=== PATIENT | female | born 1990 | race Hispanic/Latino ===

== ENCOUNTER 2022-12-08 15:00 | Outpatient (RCR) | payer OTHER, SELFPAY ==
--- NOTE | 2022-08-15 17:18 | PT.OIE ---
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) Postural lordosis, lumbar region (08/15/22) Separation of muscle (nontraumatic), unspecified site (08/15/22) Muscle weakness (generalized) (08/15/22) Unspecified urinary incontinence (08/15/22) Visit Care Team Role Provider Type ALBERTO Bolanos Attending Provider Non-Staff Family Provider Primary Care Provider Referring Provider Specialty: Family Practice Address: [address] [place] [address] M[facility] , [place], [place], [facility] Email: Physical Therapy Initial Evaluation PT-OP-A Visit Information Start: 08/15/22 10:33 Freq: Status: Active Protocol: Document 08/15/22 11:18 LRN (Rec: 08/15/22 12:14 LRN [id number]) Out-Patient Physical Therapy Visit Information Visit Information Visit Type Initial Evaluation Visit Start Time 11:18 Visit Stop Time 12:11 Total Visit Minutes 53 Visit Number 04/24 Evaluation Information Evaluation Date 08/15/22 Precautions Precautions None PT-OP-B Current Condition Start: 08/15/22 10:33 Freq: Status: Active Protocol: Document 08/15/22 11:18 LRN (Rec: 08/15/22 12:14 LRN [id number]) Current Condition History of Current Condition Onset Date 10/22/21 Current Complaints Urinary leakage with cough, sneeze, squat, not exercising History of Current Condition Pt reports since the of her son while in standing if she coughs, sneezes, or squats , she has urinary leakage and can feel her pelvic floor drop . She reports a separation of abdominal muscles. One primarily complaint is that she hasn't done a work out/ exercise since the of her son. Her hips have hurt since sometimes with prolonged positioning. Prior to childbirth she states she exercised throughout and 2 days before did: wgt training 3-4x/week with weights and cardio (jumping jacks, 1x/week running, and stationary bike). She reports having a vaginal with tearing (2nd or 3rd degree). She states still is still . Prior Treatments and Tests None Future Testing and Treatments Planned None Developmental History Developmental History of son 10/22/2021. Treatment Goals Patient/Caregiver Goals Pt goals: Not leak with cough , sneeze, squat/stress. Strengthen pelvic floor. HEP, Education proper body mechanics/breathing. Personal Factors Other Personal Factors That May Effect Spouse is in , no Therapy/Recovery family in area. PT-OP-C Subjective Start: 08/15/22 10:33 Freq: Status: Active Protocol: Document 08/15/22 11:18 LRN (Rec: 08/15/22 12:14 LRN [id number]) Patient Questionnaires Pelvic Pain and Urgency/Frequency Patient Symptom Scale Pelvic Pain Score 3 PT-OP-I Pelvic Floor Start: 08/15/22 10:33 Freq: Status: Active Protocol: Document 08/15/22 11:18 LRN (Rec: 08/15/22 12:14 LRN [id number]) Pelvic Floor Assessment Urine Pelvic Floor Surgery No Leakage Size Small Leakage Cause Cough,Exercise,Sneeze Other Leakage Causes Squat holding son. Leaks Per Day 0-1 Nocturia 0 Bowel Bowel Surgery No Bowel Movement Frequency Daily [place] Stool Chart Comments BM type 3, 4. Uses squatty potty Pelvic Clock Pelvic Clock 3-6 Tenderness Pelvic Clock 6-9 Tenderness Prolapse Cystocele Grade 2 Perineal Descent Resting Absent Bearing Present Contraction Ability Manual Muscle Testing Left 2 Manual Muscle Testing Right 2 Manual Muscle Testing Anterior 1 Manual Muscle Testing Posterior 3 Muscle Endurance (Seconds) 5 Number of Quick Contractions In 10 4 Seconds Comments Pelvic Floor Comments Externally: PF tissues dry. Internally: At vaginal entry tissue appear angry red. Gapping at small vaginal opening. Bulge felt at 5-7 of PF clock; therefore possible grade 1 rectocle. Pt uses substitute ms to perform a PF contraction. Muscle endurance: Held 10 secs, but required retightening after 5 secs. PT-OP-J Posture/Palpation/Skin Start: 08/15/22 10:33 Freq: Status: Active Protocol: Document 08/15/22 11:18 LRN (Rec: 08/15/22 12:14 LRN [id number]) Posture Evaluation Position Standing Head/C-Spine Posture Neutral Position T-Spine Posture Flattened L-Spine Posture Increased Lordosis Shoulder Posture (R) Elevated Pelvis Posture (R) Iliac Crest Superior,(R) PSIS Posterior Weight Distribution Balanced Hip Posture (L) Externally Rotated,(R) Externally Rotated Knee Posture (L) Genu Varus,(R) Genu Varus Comments Posture Comments R scapula is upwardly rotated. Palpation Assessment Location Abdomen Palpation Location Diastasis Rectus Palpation Details Umbilicus 4 above: 2 finger width (~2.5 cm) Umbilicus 3 above: 2 finger widths Umbilicus 2 above: 2.5 finger widths Umbilicus 1 above: 2.5 finger widths Umbilicus Umbilicus: 1 below: 3 finger widths Umbilicus: 2 below: 2.5 finger widths Umbilicus: 3 below: finger widths Umbilicus: 4 below: 0 finger widths PT-OP-K Range of Motion Start: 08/15/22 10:33 Freq: Status: Active Protocol: Document 08/15/22 11:18 LRN (Rec: 08/15/22 12:14 LRN [id number]) Lumbar Spine Range of Motion Lumbar Spine Active Degrees Testing Position Standing Flexion 90 Extension 12 Rotation Left 35 Rotation Right 40 Lateral Flexion Left 15 Lateral Flexion Right 15 Hip Goniometric Range of Motion Hip Right Passive Testing Position Supine Left Passive Testing Position Supine PT-OP-M Strength Start: 08/15/22 10:33 Freq: Status: Active Protocol: Document 08/15/22 11:18 LRN (Rec: 08/15/22 12:14 LRN [id number]) Trunk Strength Trunk Manual Muscle Testing Core Stabilization Poor Core stabilization with movement and resistance given to LE's. Hip Strength Hip Manual Muscle Testing Right Flexion (L2) 4+ Good+ Extension (S1) 5 Normal Abduction 5 Normal Adduction 4 Good External Rotation 5 Normal Internal Rotation 4+ Good+ Left Flexion (L2) 4+ Good+ Extension (S1) 4+ Good+ Abduction 5 Normal Adduction 4 Good External Rotation 3+ Fair+ Internal Rotation 4+ Good+ PT-OP-Q Treatments Start: 08/15/22 10:33 Freq: Status: Active Protocol: Document 08/15/22 11:18 LRN (Rec: 08/15/22 12:14 LRN [id number]) Self-Care/Home Management Treatment Education Other Education Discussed results of evaluation, goals, and plan of care (POC). Pt agreeable to goals and POC. Activities Self-Care/Home Management Activities Pt educated in self care technique for DR protection with transfers using sheet, and use of breathwork for TA tightening. PT-OP-T Assessment and Plan Start: 08/15/22 10:33 Freq: Status: Active Protocol: Document 08/15/22 11:18 LRN (Rec: 08/15/22 12:14 LRN [id number]) Physical Therapy Assessment Rehab Potential Rehabilitation Potential Good Evaluation Complexity Number of Personal Factors/Comorbidities 1-2 Number of Body Systems Impaired 4 or More Clinical Presentation at Evaluation Evolving Impairments Impairments Activity Tolerance,Posture,ROM ,Soft Tissue Mobility,Strength ,Transfers Other Impairments Urinary leakage with stress. Not able to return to prior exercise activities. Goals Three Impairment Diastasis Rectus (DR) causing core instability. Impairment Umbilicus 4 above: 2 finger width (~2.5 cm) Umbilicus 3 above: 2 finger widths Umbilicus 2 above: 2.5 finger widths Umbilicus 1 above: 2.5 finger widths Umbilicus Umbilicus: 1 below: 3 finger widths Umbilicus: 2 below: 2.5 finger widths Umbilicus: 3 below: finger widths Umbilicus: 4 below: 0 finger widths Short Term Goal (STG) Pt education in DR protection using towel for support to DR with transfers and Pt will be educated in proper sitting/ standing posture and educated in proper body mechanics for ADLs and exercise. . STG Duration 09/05/22 Bus Analyst Goal (LTG) Decrease DR, greater expected decrease to occur in > 6 months due to post hormonal changes. LTG Duration 11/14/22 Two Impairment Stress incontinence Impairment PF weakness with presence of substitute ms. PF weakness with urinary leakage on stress to PF (cough , sneeze, lifting son). Short Term Goal (STG) Education in proper methods for transfer with coordination of breathing with functional activities. STG Duration 08/29/22 Bus Analyst Goal (LTG) Strengthen the PF with pt able to cough, sneeze, lift son without urinary leakage. LTG Duration 11/14/22 One Impairment Pt lacks self care HEP. Short Term Goal (STG) Pt will be independent in appropriate self care & hip stretches. STG Duration 10/06/22 Group Home Goal (LTG) Pt will be independent in appropriate PF (to decrease urinary leakage) & core strengthening ex's to improve posture. LTG Duration 11/14/22 Assessment Summary Assessment Pt is a 32 year old female who will be one year post on 10/22/21. She presents with stress urinary incontinence and notable diastasis rectus that limits her core and pelvic stability. She has a possible leg length descrepancy, mentioned towards the end of the evaluation that will be assessed at her next visit. She appears to have a posterior positioned R innominate and possible R sacral rotation, with decreased hip strength, L>R. The pt has dryness of her external PF tissues and visible gapping at her vaginal entry, as well as tenderness/ redness internally at the entry; therefore further medical assessment may be needed by referring physician for possible estrogen therapy when appropriate. She notes no tenderness of the Pelvic Floor (PF) muscles per internal assessment. She has weakness of her PF at 1-2, 4-5 , 7-8, and 10-11 of her PF clock. She is able to perform 4 quick contraction in 10 secs and can hold the PF contraction 5 secs before feeling the muscles re- contract. The pt will benefit from skilled physical therapy to eliminate urinary leakage and be educated in ex's to improve her core stability and help with reduction of her diastasis rectus over time and once she has stopped , manual therapy for postural dysfunctions, pt education in proper core pressure management and home ex program. Physical Therapy Plan Frequency and Duration Frequency of Treatment 1x/Week Plan of Care Start Date 08/15/22 Plan of Care End Date 11/14/22 Therapeutic Interventions Therapeutic Interventions Home Exercise Program,Joint Mobilizations,Manual Therapy, Neuromuscular Re-education, Patient/Caregiver Education, Self-Care/Home Management,Soft Tissue Mobilization,Taping, Therapeutic Activities, Therapeutic Exercises Modalities Biofeedback,Hot Packs Next Visit Focus/Plan Next Note Type Treatment Note Next Visit Plan Assess hip mobility and sacral positioning. Issue and educate in filling out bladder diary, and review bladder diary when returned, Pt education in proper Kegel without use of substitute muscles, pt education in vulvar/genital care, proper breathing with transfer, and body mechanics, and proper deep breathing. Biofeedback with vaginal/ rectal/surface sensor(s). PF/core/hip strengthening, improve hip mobility, improve abdominal soft tissue (bladder ) mobility, discuss foods, and water intake. TA strengthening, K-taping for DR, discuss & educate pt in proper squatting and lifting, sit to stand, and moving in bed using breathwork and core/ PF stabilization for proper abdominal core pressures, teach proper isolated Kegels for pelvic stabilization, STM of abdomen (and urachus), bladder.
--- NOTE | 2022-08-21 18:01 | PT.OTN ---
Current Diagnoses Flatback syndrome, site unspecified (08/21/22) Postural lordosis, lumbar region (08/21/22) Separation of muscle (nontraumatic), unspecified site (08/21/22) Muscle weakness (generalized) (08/21/22) Unspecified urinary incontinence (08/21/22) Physical Therapy Treatment Note PT-OP-A Visit Information Start: 08/15/22 10:33 Freq: Status: Active Protocol: Document 08/21/22 08:53 LRN (Rec: 08/21/22 09:34 LRN [id number]) Out-Patient Physical Therapy Visit Information Visit Information Visit Type Treatment Note Visit Start Time 08:53 Visit Stop Time 09:31 Total Visit Minutes 38 Visit Number 05/25 Evaluation Information Evaluation Date 08/15/22 Precautions Precautions None PT-OP-B Current Condition Start: 08/15/22 10:33 Freq: Status: Active Protocol: Document 08/15/22 11:18 LRN (Rec: 08/15/22 12:14 LRN [id number]) Current Condition History of Current Condition Onset Date 10/22/21 Current Complaints Urinary leakage with cough, sneeze, squat, not exercising History of Current Condition Pt reports since the of her son while in standing if she coughs, sneezes, or squats , she has urinary leakage and can feel her pelvic floor drop . She reports a separation of abdominal muscles. One primarily complaint is that she hasn't done a work out/ exercise since the of her son. Her hips have hurt since sometimes with prolonged positioning. Prior to childbirth she states she exercised throughout and 2 days before did: wgt training 3-4x/week with weights and cardio (jumping jacks, 1x/week running, and stationary bike). She reports having a vaginal with tearing (2nd or 3rd degree). She states still is still . Prior Treatments and Tests None Future Testing and Treatments Planned None Developmental History Developmental History of son 10/22/2021. Treatment Goals Patient/Caregiver Goals Pt goals: Not leak with cough , sneeze, squat/stress. Strengthen pelvic floor. HEP, Education proper body mechanics/breathing. Personal Factors Other Personal Factors That May Effect Spouse is in , no Therapy/Recovery family in area. PT-OP-C Subjective Start: 08/15/22 10:33 Freq: Status: Active Protocol: Document 08/21/22 08:53 LRN (Rec: 08/21/22 09:34 LRN [id number]) OP-PT Subjective Patient Comments Patient Comments C/O R hip hurting at nighttime . States she has a family history of needing to shorten her R pant legs for wearing (L side fits properly). PT-OP-I Pelvic Floor Start: 08/15/22 10:33 Freq: Status: Active Protocol: Document 08/15/22 11:18 LRN (Rec: 08/15/22 12:14 LRN [id number]) Pelvic Floor Assessment Urine Pelvic Floor Surgery No Leakage Size Small Leakage Cause Cough,Exercise,Sneeze Other Leakage Causes Squat holding son. Leaks Per Day 0-1 Nocturia 0 Bowel Bowel Surgery No Bowel Movement Frequency Daily [place] Stool Chart Comments BM type 3, 4. Uses squatty potty Pelvic Clock Pelvic Clock 3-6 Tenderness Pelvic Clock 6-9 Tenderness Prolapse Cystocele Grade 2 Perineal Descent Resting Absent Bearing Present Contraction Ability Manual Muscle Testing Left 2 Manual Muscle Testing Right 2 Manual Muscle Testing Anterior 1 Manual Muscle Testing Posterior 3 Muscle Endurance (Seconds) 5 Number of Quick Contractions In 10 4 Seconds Comments Pelvic Floor Comments Externally: PF tissues dry. Internally: At vaginal entry tissue appear angry red. Gapping at small vaginal opening. Bulge felt at 5-7 of PF clock; therefore possible grade 1 rectocle. Pt uses substitute ms to perform a PF contraction. Muscle endurance: Held 10 secs, but required retightening after 5 secs. PT-OP-J Posture/Palpation/Skin Start: 08/15/22 10:33 Freq: Status: Active Protocol: Document 08/15/22 11:18 LRN (Rec: 08/15/22 12:14 LRN [id number]) Posture Evaluation Position Standing Head/C-Spine Posture Neutral Position T-Spine Posture Flattened L-Spine Posture Increased Lordosis Shoulder Posture (R) Elevated Pelvis Posture (R) Iliac Crest Superior,(R) PSIS Posterior Weight Distribution Balanced Hip Posture (L) Externally Rotated,(R) Externally Rotated Knee Posture (L) Genu Varus,(R) Genu Varus Comments Posture Comments R scapula is upwardly rotated. Palpation Assessment Location Abdomen Palpation Location Diastasis Rectus Palpation Details Umbilicus 4 above: 2 finger width (~2.5 cm) Umbilicus 3 above: 2 finger widths Umbilicus 2 above: 2.5 finger widths Umbilicus 1 above: 2.5 finger widths Umbilicus Umbilicus: 1 below: 3 finger widths Umbilicus: 2 below: 2.5 finger widths Umbilicus: 3 below: finger widths Umbilicus: 4 below: 0 finger widths PT-OP-K Range of Motion Start: 08/15/22 10:33 Freq: Status: Active Protocol: Document 08/21/22 08:53 LRN (Rec: 08/21/22 09:34 LRN [id number]) Hip Goniometric Range of Motion Hip Right Passive Testing Position Supine Internal Rotation 35 External Rotation 45 Left Passive Testing Position Supine Internal Rotation 30 External Rotation 50 PT-OP-M Strength Start: 08/15/22 10:33 Freq: Status: Active Protocol: Document 08/15/22 11:18 LRN (Rec: 08/15/22 12:14 LRN [id number]) Trunk Strength Trunk Manual Muscle Testing Core Stabilization Poor Core stabilization with movement and resistance given to LE's. Hip Strength Hip Manual Muscle Testing Right Flexion (L2) 4+ Good+ Extension (S1) 5 Normal Abduction 5 Normal Adduction 4 Good External Rotation 5 Normal Internal Rotation 4+ Good+ Left Flexion (L2) 4+ Good+ Extension (S1) 4+ Good+ Abduction 5 Normal Adduction 4 Good External Rotation 3+ Fair+ Internal Rotation 4+ Good+ PT-OP-Q Treatments Start: 08/15/22 10:33 Freq: Status: Active Protocol: Document 08/21/22 08:53 LRN (Rec: 08/21/22 09:34 LRN [id number]) Therapeutic Exercises Supine Exercises Hip IR stretch Supine Exercise Name Piriformis stretch (ankle over knee w/opp LE KTC) Side bilateral Reps/Minutes 10SH x 6 each Comments Extra time needed for positional training and max bella stretch Lateral Hip stretch Supine Exercise Name Lateral Hip stretch Side bilateral Reps/Minutes 10SH x 10 each Comments Extra time needed for positional training and max bella stretch TA tightening Supine Exercise Name TA tightening w/awareness of proper contraction w/o trunk extensors Reps/Minutes 10' Comments Much cuing required for keeping chest still Deep Breathing Supine Exercise Name Deep Breathing Training and awareness training Reps/Minutes 5' Sitting Exercises Hip ER stretch Sitting Exercise Name R Hip ER stretch Side right Reps/Minutes 60SH x 2 Comments Extra time needed for positional training and max bella stretch Self-Care/Home Management Treatment Education Patient Education Home Exercise Program Activities Self-Care/Home Management Activities Issued & reviewed HEP: Hip stretch IR/ER in supine and ER in sitting. Added TA tightening w/o chest movement and Deep breathing/breathing w /min chest rise PT-OP-T Assessment and Plan Start: 08/15/22 10:33 Freq: Status: Active Protocol: Document 08/21/22 08:53 LRN (Rec: 08/21/22 09:34 LRN [id number]) Physical Therapy Assessment Goals Three Impairment Diastasis Rectus (DR) causing core instability. Impairment Umbilicus 4 above: 2 finger width (~2.5 cm) Umbilicus 3 above: 2 finger widths Umbilicus 2 above: 2.5 finger widths Umbilicus 1 above: 2.5 finger widths Umbilicus Umbilicus: 1 below: 3 finger widths Umbilicus: 2 below: 2.5 finger widths Umbilicus: 3 below: finger widths Umbilicus: 4 below: 0 finger widths Short Term Goal (STG) Pt education in DR protection using towel for support to DR with transfers and Pt will be educated in proper sitting/ standing posture and educated in proper body mechanics for ADLs and exercise. . STG Duration 09/05/22 Usp Goal (LTG) Decrease DR, greater expected decrease to occur in > 6 months due to post hormonal changes. LTG Duration 11/14/22 Two Impairment Stress incontinence Impairment PF weakness with presence of substitute ms. PF weakness with urinary leakage on stress to PF (cough , sneeze, lifting son). Short Term Goal (STG) Education in proper methods for transfer with coordination of breathing with functional activities. STG Duration 08/29/22 Usp Goal (LTG) Strengthen the PF with pt able to cough, sneeze, lift son without urinary leakage. LTG Duration 11/14/22 One Impairment Pt lacks self care HEP. Short Term Goal (STG) Pt will be independent in appropriate self care & hip stretches. STG Duration 10/06/22 (08/21/22: MET GOAL) Decorating Supervisor Goal (LTG) Pt will be independent in appropriate PF (to decrease urinary leakage) & core strengthening ex's to improve posture. LTG Duration 11/14/22 Progress Towards Goals Progress Comments Progressed HEP. Assessment Summary Assessment R leg length is normal in supine and slightly long in longsit; therefore further assessment is needed, probably sacral balancing is needed. Pt is not able to maintain core stability during hip stretches, but is now more aware and may be able to isolate her hips to stretch. Improved deep breathing ability. Pt is not able to tighten TA without using her trunk extensors. Physical Therapy Plan Frequency and Duration Frequency of Treatment 1x/Week Plan of Care Start Date 08/15/22 Plan of Care End Date 11/14/22 Next Visit Focus/Plan Next Note Type Treatment Note Next Visit Plan Recheck for pt ablility to perform TA w/o trunk extensors . Assess sacral positioning for balancing. Issue and educate in filling out bladder diary, and review bladder diary when returned. Pt education in proper Kegel without use of substitute muscles, pt education in vulvar/genital care, proper breathing with transfer, and body mechanics PF/core/hip strengthening, improve hip mobility, improve abdominal soft tissue (bladder ) mobility, discuss foods, and water intake. TA strengthening, K-taping for DR, discuss & educate pt in proper squatting and lifting, sit to stand, and moving in bed using breathwork and core/ PF stabilization for proper abdominal core pressures, teach proper isolated Kegels for pelvic stabilization, STM of abdomen (and urachus), bladder.
--- NOTE | 2022-09-23 16:27 | PT.OTN ---
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, lumbar region (09/23/22) Separation of muscle (nontraumatic), unspecified site (09/23/22) Muscle weakness (generalized) (09/23/22) Unspecified urinary incontinence (09/23/22) Physical Therapy Treatment Note PT-OP-A Visit Information Start: 08/15/22 10:33 Freq: Status: Active Protocol: Document 09/23/22 15:05 LRN (Rec: 09/23/22 16:26 LRN [id number]) Out-Patient Physical Therapy Visit Information Visit Information Visit Type Treatment Note Visit Start Time 15:06 Visit Stop Time 15:46 Total Visit Minutes 40 Visit Number 06/22 PT-OP-B Current Condition Start: 08/15/22 10:33 Freq: Status: Active Protocol: Document 08/15/22 11:18 LRN (Rec: 08/15/22 12:14 LRN [id number]) Current Condition History of Current Condition Onset Date 10/22/21 Current Complaints Urinary leakage with cough, sneeze, squat, not exercising History of Current Condition Pt reports since the of her son while in standing if she coughs, sneezes, or squats , she has urinary leakage and can feel her pelvic floor drop . She reports a separation of abdominal muscles. One primarily complaint is that she hasn't done a work out/ exercise since the of her son. Her hips have hurt since sometimes with prolonged positioning. Prior to childbirth she states she exercised throughout and 2 days before did: wgt training 3-4x/week with weights and cardio (jumping jacks, 1x/week running, and stationary bike). She reports having a vaginal with tearing (2nd or 3rd degree). She states still is still . Prior Treatments and Tests None Future Testing and Treatments Planned None Developmental History Developmental History of son 10/22/2021. Treatment Goals Patient/Caregiver Goals Pt goals: Not leak with cough , sneeze, squat/stress. Strengthen pelvic floor. HEP, Education proper body mechanics/breathing. Personal Factors Other Personal Factors That May Effect Spouse is in , no Therapy/Recovery family in area. PT-OP-C Subjective Start: 08/15/22 10:33 Freq: Status: Active Protocol: Document 09/23/22 15:05 LRN (Rec: 09/23/22 16:26 LRN [id number]) OP-PT Subjective Patient Comments Patient Comments States she knows she doesn't drink enough fluids but doesn' t have time when taking care of 11 month old son. PT-OP-I Pelvic Floor Start: 08/15/22 10:33 Freq: Status: Active Protocol: Document 08/15/22 11:18 LRN (Rec: 08/15/22 12:14 LRN [id number]) Pelvic Floor Assessment Urine Pelvic Floor Surgery No Leakage Size Small Leakage Cause Cough,Exercise,Sneeze Other Leakage Causes Squat holding son. Leaks Per Day 0-1 Nocturia 0 Bowel Bowel Surgery No Bowel Movement Frequency Daily [place] Stool Chart Comments BM type 3, 4. Uses squatty potty Pelvic Clock Pelvic Clock 3-6 Tenderness Pelvic Clock 6-9 Tenderness Prolapse Cystocele Grade 2 Perineal Descent Resting Absent Bearing Present Contraction Ability Manual Muscle Testing Left 2 Manual Muscle Testing Right 2 Manual Muscle Testing Anterior 1 Manual Muscle Testing Posterior 3 Muscle Endurance (Seconds) 5 Number of Quick Contractions In 10 4 Seconds Comments Pelvic Floor Comments Externally: PF tissues dry. Internally: At vaginal entry tissue appear angry red. Gapping at small vaginal opening. Bulge felt at 5-7 of PF clock; therefore possible grade 1 rectocle. Pt uses substitute ms to perform a PF contraction. Muscle endurance: Held 10 secs, but required retightening after 5 secs. PT-OP-J Posture/Palpation/Skin Start: 08/15/22 10:33 Freq: Status: Active Protocol: Document 08/15/22 11:18 LRN (Rec: 08/15/22 12:14 LRN [id number]) Posture Evaluation Position Standing Head/C-Spine Posture Neutral Position T-Spine Posture Flattened L-Spine Posture Increased Lordosis Shoulder Posture (R) Elevated Pelvis Posture (R) Iliac Crest Superior,(R) PSIS Posterior Weight Distribution Balanced Hip Posture (L) Externally Rotated,(R) Externally Rotated Knee Posture (L) Genu Varus,(R) Genu Varus Comments Posture Comments R scapula is upwardly rotated. Palpation Assessment Location Abdomen Palpation Location Diastasis Rectus Palpation Details Umbilicus 4 above: 2 finger width (~2.5 cm) Umbilicus 3 above: 2 finger widths Umbilicus 2 above: 2.5 finger widths Umbilicus 1 above: 2.5 finger widths Umbilicus Umbilicus: 1 below: 3 finger widths Umbilicus: 2 below: 2.5 finger widths Umbilicus: 3 below: finger widths Umbilicus: 4 below: 0 finger widths PT-OP-K Range of Motion Start: 08/15/22 10:33 Freq: Status: Active Protocol: Document 08/21/22 08:53 LRN (Rec: 08/21/22 09:34 LRN [id number]) Hip Goniometric Range of Motion Hip Right Passive Testing Position Supine Internal Rotation 35 External Rotation 45 Left Passive Testing Position Supine Internal Rotation 30 External Rotation 50 PT-OP-M Strength Start: 08/15/22 10:33 Freq: Status: Active Protocol: Document 08/15/22 11:18 LRN (Rec: 08/15/22 12:14 LRN [id number]) Trunk Strength Trunk Manual Muscle Testing Core Stabilization Poor Core stabilization with movement and resistance given to LE's. Hip Strength Hip Manual Muscle Testing Right Flexion (L2) 4+ Good+ Extension (S1) 5 Normal Abduction 5 Normal Adduction 4 Good External Rotation 5 Normal Internal Rotation 4+ Good+ Left Flexion (L2) 4+ Good+ Extension (S1) 4+ Good+ Abduction 5 Normal Adduction 4 Good External Rotation 3+ Fair+ Internal Rotation 4+ Good+ PT-OP-Q Treatments Start: 08/15/22 10:33 Freq: Status: Active Protocol: Document 09/23/22 15:05 LRN (Rec: 09/23/22 16:26 LRN [id number]) Therapeutic Exercises Supine Exercises Hip IR stretch Supine Exercise Name Piriformis stretch (ankle over knee w/opp LE KTC) Side bilateral Reps/Minutes 60 SH x 1 Lateral Hip stretch Supine Exercise Name Lateral Hip stretch Side bilateral Reps/Minutes 10SH x 10 each Comments Extra time needed for positional training and max bella stretch TA tightening Supine Exercise Name TA tightening w/awareness of proper contraction w/o trunk extensors Reps/Minutes 3' Comments Noted TA tight at ASIS Deep Breathing Supine Exercise Name Deep Breathing Training and awareness training Reps/Minutes 5' Comments Pt able to breath through 5 secs. Sitting Exercises Hip ER stretch Sitting Exercise Name R Hip ER stretch (sitting and side sit) Side right Reps/Minutes 60SH x 1 each Other Exercises 4 pt TA tightening Other Exercise Name 4 pt TA tightening Reps/Minutes 4 breath hold x 10 Comments Cuing and training to keep neutral spine. Self-Care/Home Management Treatment Education Patient Education Home Exercise Program Other Education Reviewed Bladder Diary with recommendations and discussion of hydration levels, and times between voids. Discussed possible outcomes of lack of hydration ( constipation, possible UTI). Activities Self-Care/Home Management Activities Issued & reviewed self care: DR care of towel use for approximation of TA and for log roll transfer to protect DR. Issued & reviewed HEP: 4 pt TA tightening. PT-OP-T Assessment and Plan Start: 08/15/22 10:33 Freq: Status: Active Protocol: Document 09/23/22 15:05 LRN (Rec: 09/23/22 16:26 LRN [id number]) Physical Therapy Assessment Goals Three Impairment Diastasis Rectus (DR) causing core instability. Impairment Umbilicus 4 above: 2 finger width (~2.5 cm) Umbilicus 3 above: 2 finger widths Umbilicus 2 above: 2.5 finger widths Umbilicus 1 above: 2.5 finger widths Umbilicus Umbilicus: 1 below: 3 finger widths Umbilicus: 2 below: 2.5 finger widths Umbilicus: 3 below: finger widths Umbilicus: 4 below: 0 finger widths Short Term Goal (STG) Pt education in DR protection using towel for support to DR with transfers and Pt will be educated in proper sitting/ standing posture and educated in proper body mechanics for ADLs and exercise. 09/23/22: Educated pt in DR protection using towel for support with transfers. STG Duration 09/05/22 progressed 09/23/22 DR education Senior Living Goal (LTG) Decrease DR, greater expected decrease to occur in > 6 months due to post hormonal changes. LTG Duration 11/14/22 Two Impairment Stress incontinence Impairment PF weakness with presence of substitute ms. PF weakness with urinary leakage on stress to PF (cough , sneeze, lifting son). Short Term Goal (STG) Education in proper methods for transfer with coordination of breathing with functional activities. 09/23/22: Educated in proper methods for transfer. STG Duration 08/29/22 progressed 09/23/22 Lou[employer] Mortiser Operator Goal (LTG) Strengthen the PF with pt able to cough, sneeze, lift son without urinary leakage. LTG Duration 11/14/22 One Impairment Pt lacks self care HEP. Short Term Goal (STG) Pt will be independent in appropriate self care & hip stretches. 09/23/22: Pt shows good knowledge of hip IR/ER stretches. STG Duration 10/06/22 (08/21/22: MET GOAL) Senior Living Goal (LTG) Pt will be independent in appropriate PF (to decrease urinary leakage) & core strengthening ex's to improve posture. LTG Duration 11/14/22 Assessment Summary Assessment Per bladder diary review, pt is not drinking enough fluids and has too much time between voids. Improved ability to deep breath and she demonstrates good TA contraction through 5 sec breaths. Physical Therapy Plan Frequency and Duration Frequency of Treatment 1x/Week Plan of Care Start Date 08/15/22 Plan of Care End Date 11/14/22 Next Visit Focus/Plan Next Note Type Treatment Note Next Visit Plan Next: educate in proper sitting/standing posture, breathwork with proper body mechanics for ADLs and exercise (proper squatting and lifting, sit to stand, and moving in bed), and core/PF stabilization for proper abdominal core pressures. Assess sacral positioning for balancing. Pt education in proper Kegel without use of substitute muscles, pt education in vulvar/genital care, PF/core/hip strengthening, improve hip mobility, improve abdominal soft tissue (bladder ) mobility. Progress TA strengthening, ? K-taping for DR, discuss/ teach proper isolated Kegels for pelvic stabilization, STM of abdomen (and urachus), bladder.
--- NOTE | 2022-10-16 16:12 | PT.OTN ---
Current Diagnoses Flatback syndrome, site unspecified (10/16/22) Postural lordosis, lumbar region (10/16/22) Separation of muscle (nontraumatic), unspecified site (10/16/22) Muscle weakness (generalized) (10/16/22) Unspecified urinary incontinence (10/16/22) Physical Therapy Treatment Note PT-OP-A Visit Information Start: 08/15/22 10:33 Freq: Status: Active Protocol: Document 10/16/22 15:01 LRN (Rec: 10/16/22 16:08 LRN [id number]) Out-Patient Physical Therapy Visit Information Visit Information Visit Type Treatment Note Visit Start Time 15:01 Visit Stop Time 15:44 Total Visit Minutes 43 Visit Number 07/23 Evaluation Information Evaluation Date 08/15/22 Precautions Precautions None PT-OP-B Current Condition Start: 08/15/22 10:33 Freq: Status: Active Protocol: Document 08/15/22 11:18 LRN (Rec: 08/15/22 12:14 LRN [id number]) Current Condition History of Current Condition Onset Date 10/22/21 Current Complaints Urinary leakage with cough, sneeze, squat, not exercising History of Current Condition Pt reports since the of her son while in standing if she coughs, sneezes, or squats , she has urinary leakage and can feel her pelvic floor drop . She reports a separation of abdominal muscles. One primarily complaint is that she hasn't done a work out/ exercise since the of her son. Her hips have hurt since sometimes with prolonged positioning. Prior to childbirth she states she exercised throughout and 2 days before did: wgt training 3-4x/week with weights and cardio (jumping jacks, 1x/week running, and stationary bike). She reports having a vaginal with tearing (2nd or 3rd degree). She states still is still . Prior Treatments and Tests None Future Testing and Treatments Planned None Developmental History Developmental History of son 10/22/2021. Treatment Goals Patient/Caregiver Goals Pt goals: Not leak with cough , sneeze, squat/stress. Strengthen pelvic floor. HEP, Education proper body mechanics/breathing. Personal Factors Other Personal Factors That May Effect Spouse is in , no Therapy/Recovery family in area. PT-OP-C Subjective Start: 08/15/22 10:33 Freq: Status: Active Protocol: Document 09/23/22 15:05 LRN (Rec: 09/23/22 16:26 LRN [id number]) OP-PT Subjective Patient Comments Patient Comments States she knows she doesn't drink enough fluids but doesn' t have time when taking care of 11 month old son. PT-OP-I Pelvic Floor Start: 08/15/22 10:33 Freq: Status: Active Protocol: Document 10/16/22 15:01 LRN (Rec: 10/16/22 16:08 LRN [id number]) Pelvic Floor Assessment SEMG (uV) Baseline 4.0 Quick Contraction 12 10 Second Contraction 11.0 Recruitment Pattern Good Relaxation Fair Holding Fair Stability of Hold Poor/Slow SEMG Stability of Rest Fair Comments Pelvic Floor Comments Quick Flicks (10 reps noted above): No isolation of PF from abdominals. Long Holds (10 reps noted above): Pt tried to isolate PF from abdominals. PT-OP-J Posture/Palpation/Skin Start: 08/15/22 10:33 Freq: Status: Active Protocol: Document 08/15/22 11:18 LRN (Rec: 08/15/22 12:14 LRN [id number]) Posture Evaluation Position Standing Head/C-Spine Posture Neutral Position T-Spine Posture Flattened L-Spine Posture Increased Lordosis Shoulder Posture (R) Elevated Pelvis Posture (R) Iliac Crest Superior,(R) PSIS Posterior Weight Distribution Balanced Hip Posture (L) Externally Rotated,(R) Externally Rotated Knee Posture (L) Genu Varus,(R) Genu Varus Comments Posture Comments R scapula is upwardly rotated. Palpation Assessment Location Abdomen Palpation Location Diastasis Rectus Palpation Details Umbilicus 4 above: 2 finger width (~2.5 cm) Umbilicus 3 above: 2 finger widths Umbilicus 2 above: 2.5 finger widths Umbilicus 1 above: 2.5 finger widths Umbilicus Umbilicus: 1 below: 3 finger widths Umbilicus: 2 below: 2.5 finger widths Umbilicus: 3 below: finger widths Umbilicus: 4 below: 0 finger widths PT-OP-K Range of Motion Start: 08/15/22 10:33 Freq: Status: Active Protocol: Document 08/21/22 08:53 LRN (Rec: 08/21/22 09:34 LRN [id number]) Hip Goniometric Range of Motion Hip Right Passive Testing Position Supine Internal Rotation 35 External Rotation 45 Left Passive Testing Position Supine Internal Rotation 30 External Rotation 50 PT-OP-M Strength Start: 08/15/22 10:33 Freq: Status: Active Protocol: Document 08/15/22 11:18 LRN (Rec: 08/15/22 12:14 [facility] [id number]) Trunk Strength Trunk Manual Muscle Testing Core Stabilization Poor Core stabilization with movement and resistance given to LE's. Hip Strength Hip Manual Muscle Testing Right Flexion (L2) 4+ Good+ Extension (S1) 5 Normal Abduction 5 Normal Adduction 4 Good External Rotation 5 Normal Internal Rotation 4+ Good+ Left Flexion (L2) 4+ Good+ Extension (S1) 4+ Good+ Abduction 5 Normal Adduction 4 Good External Rotation 3+ Fair+ Internal Rotation 4+ Good+ PT-OP-Q Treatments Start: 08/15/22 10:33 Freq: Status: Active Protocol: Document 10/16/22 15:01 LRN (Rec: 10/16/22 16:08 [facility] [id number]) Therapeutic Exercises Supine Exercises PF Long Holds Supine Exercise Name PF Long Holds Reps/Minutes 10 SH x 20 Comments Cuing for PF isolation PF Quick Flicks Supine Exercise Name PF Quick Flicks Reps/Minutes 2 SH x 20 Comments Cuing for signaling of PF contractioni. Breath w/PF contraction Supine Exercise Name Breath w/PF contraction Reps/Minutes 4' Comments Cuing and self cuing needed w/ placement of hand on belly PF isolated Supine Exercise Name PF contraction isolated Reps/Minutes 5' Comments Pt education in proper Kegel without use of substitute muscles TA tightening Supine Exercise Name TA tightening w/awareness of proper contraction w/o trunk extensors Reps/Minutes 3' Comments Noted TA tight at ASIS Deep Breathing Supine Exercise Name Deep Breathing Training and awareness training Reps/Minutes 2' Comments Pt able to breath through 5 secs. Self-Care/Home Management Treatment Education Patient Education Body Mechanics,Posture Other Education Pt educated in proper sitting/ standing posture, breathwork with proper body mechanics for ADLs and exercise (proper squatting and lifting, sit to stand, and moving in bed), and core/PF stabilization for proper abdominal core pressures. PT-OP-T Assessment and Plan Start: 08/15/22 10:33 Freq: Status: Active Protocol: Document 10/16/22 15:01 LRN (Rec: 10/16/22 16:08 LRN [id number]) Physical Therapy Assessment Goals Three Impairment Diastasis Rectus (DR) causing core instability. Impairment Umbilicus 4 above: 2 finger width (~2.5 cm) Umbilicus 3 above: 2 finger widths Umbilicus 2 above: 2.5 finger widths Umbilicus 1 above: 2.5 finger widths Umbilicus Umbilicus: 1 below: 3 finger widths Umbilicus: 2 below: 2.5 finger widths Umbilicus: 3 below: finger widths Umbilicus: 4 below: 0 finger widths Short Term Goal (STG) Pt education in DR protection using towel for support to DR with transfers and Pt will be educated in proper sitting/ standing posture and educated in proper body mechanics for ADLs and exercise. 09/23/22: Educated pt in DR protection using towel for support with transfers. 10/16/22: Pt will be educated in proper sitting/standing posture and educated in proper body mechanics for ADLs and functional activities ( exercise). STG Duration 09/05/22 progressed 09/23/22 DR education Long-Term Goal (LTG) Decrease DR, greater expected decrease to occur in > 6 months due to post hormonal changes. LTG Duration 11/14/22 Two Impairment Stress incontinence Impairment PF weakness with presence of substitute ms. PF weakness with urinary leakage on stress to PF (cough , sneeze, lifting son). Short Term Goal (STG) Education in proper methods for transfer with coordination of breathing with functional activities. 09/23/22: Educated in proper methods for transfer. 10/16/22: Educated in transfers w/coordination of breathing and with functional activities (sup<>sit<>stand). STG Duration 08/29/22 (10/16/22: MET GOAL) Long-Term Goal (LTG) Strengthen the PF with pt able to cough, sneeze, lift son without urinary leakage. LTG Duration 11/14/22 One Impairment Pt lacks self care HEP. Short Term Goal (STG) Pt will be independent in appropriate self care & hip stretches. 09/23/22: Pt shows good knowledge of hip IR/ER stretches. STG Duration 10/06/22 (08/21/22: MET GOAL) Auto Seat Cover Installer Goal (LTG) Pt will be independent in appropriate PF (to decrease urinary leakage) & core strengthening ex's to improve posture. LTG Duration 11/14/22 Assessment Summary Assessment Pt will be one year post on 10/22/21. She returns after 3 weeks from a trip home without being able to do home Kegel ex's due to too busy of schedule. 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 Quick flick strength is good. 10 sec Long holds fatigue after 6 secs with slow contraction, fatigues after 2 secs with a quick contraction to hold. Her strength is fairly good, but resting is variable w/poor stability. Her PF contraction is with abdominal assist. Physical Therapy Plan Frequency and Duration Frequency of Treatment 1x/Week Plan of Care Start Date 08/15/22 Plan of Care End Date 11/14/22 Next Visit Focus/Plan Next Note Type Treatment Note Next Visit Plan Next: Discuss cont of therapy after 10/23/22, if pt needs further, she must contact provider [facility] to request nw auth for cont'd PT after . Review Kegel without use of substitute muscles, Education in vulvar/genital care, K-taping for DR, STM of abdomen (and urachus), bladder . Assess sacral positioning for balancing. PF/core/hip strengthening, improve hip mobility (ER>IR), improve abdominal soft tissue (bladder) mobility. Progress TA strengthening,
--- NOTE | 2022-10-20 17:24 | PT-OP ANOTE ---
Attempted to contact pt regarding her need to contact provider to submit a new authorization to continue PT after 10/30/22. Pt's listed phone number [phone] did not have a voicemail box that was set up; therefore I was unable to contact the pt.
--- NOTE | 2022-11-14 16:26 | PT.OTN ---
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, lumbar region (11/14/22) Separation of muscle (nontraumatic), unspecified site (11/14/22) Muscle weakness (generalized) (11/14/22) Unspecified urinary incontinence (11/14/22) Physical Therapy Treatment Note PT-OP-A Visit Information Start: 08/15/22 10:33 Freq: Status: Active Protocol: Document 11/14/22 15:05 LRN (Rec: 11/14/22 16:23 LRN [id number]) Out-Patient Physical Therapy Visit Information Visit Information Visit Type Treatment Note Visit Note 04/24 Visit Start Time 15:05 Visit Stop Time 15:43 Total Visit Minutes 38 Visit Number 08/22 Evaluation Information Evaluation Date 08/15/22 Precautions Precautions None PT-OP-B Current Condition Start: 08/15/22 10:33 Freq: Status: Active Protocol: Document 08/15/22 11:18 LRN (Rec: 08/15/22 12:14 LRN [id number]) Current Condition History of Current Condition Onset Date 10/22/21 Current Complaints Urinary leakage with cough, sneeze, squat, not exercising History of Current Condition Pt reports since the of her son while in standing if she coughs, sneezes, or squats , she has urinary leakage and can feel her pelvic floor drop . She reports a separation of abdominal muscles. One primarily complaint is that she hasn't done a work out/ exercise since the of her son. Her hips have hurt since sometimes with prolonged positioning. Prior to childbirth she states she exercised throughout and 2 days before did: wgt training 3-4x/week with weights and cardio (jumping jacks, 1x/week running, and stationary bike). She reports having a vaginal with tearing (2nd or 3rd degree). She states still is still . Prior Treatments and Tests None Future Testing and Treatments Planned None Developmental History Developmental History of son 10/22/2021. Treatment Goals Patient/Caregiver Goals Pt goals: Not leak with cough , sneeze, squat/stress. Strengthen pelvic floor. HEP, Education proper body mechanics/breathing. Personal Factors Other Personal Factors That May Effect Spouse is in , no Therapy/Recovery family in area. PT-OP-C Subjective Start: 08/15/22 10:33 Freq: Status: Active Protocol: Document 11/14/22 15:05 LRN (Rec: 11/14/22 16:23 LRN [id number]) OP-PT Subjective Patient Comments Patient Comments Moving to [place] 12/12/22. Hasn' t been able to come because she was told she needed a new referral. States more therapy was approved through Feb 2023 . States if have to use the bathroom and uses hot water she has urge to go. Would like to continue therapy until at least her moving to [facility]. Patient Questionnaires Pelvic Pain and Urgency/Frequency Patient Symptom Scale Pelvic Pain Score 2 PT-OP-I Pelvic Floor Start: 08/15/22 10:33 Freq: Status: Active Protocol: Document 10/16/22 15:01 LRN (Rec: 10/16/22 16:08 LRN [id number]) Pelvic Floor Assessment SEMG (uV) Baseline 4.0 Quick Contraction 12 10 Second Contraction 11.0 Recruitment Pattern Good Relaxation Fair Holding Fair Stability of Hold Poor/Slow SEMG Stability of Rest Fair Comments Pelvic Floor Comments Quick Flicks (10 reps noted above): No isolation of PF from abdominals. Long Holds (10 reps noted above): Pt tried to isolate PF from abdominals. PT-OP-J Posture/Palpation/Skin Start: 08/15/22 10:33 Freq: Status: Active Protocol: Document 08/15/22 11:18 LRN (Rec: 08/15/22 12:14 LRN [id number]) Posture Evaluation Position Standing Head/C-Spine Posture Neutral Position T-Spine Posture Flattened L-Spine Posture Increased Lordosis Shoulder Posture (R) Elevated Pelvis Posture (R) Iliac Crest Superior,(R) PSIS Posterior Weight Distribution Balanced Hip Posture (L) Externally Rotated,(R) Externally Rotated Knee Posture (L) Genu Varus,(R) Genu Varus Comments Posture Comments R scapula is upwardly rotated. Palpation Assessment Location Abdomen Palpation Location Diastasis Rectus Palpation Details Umbilicus 4 above: 2 finger width (~2.5 cm) Umbilicus 3 above: 2 finger widths Umbilicus 2 above: 2.5 finger widths Umbilicus 1 above: 2.5 finger widths Umbilicus Umbilicus: 1 below: 3 finger widths Umbilicus: 2 below: 2.5 finger widths Umbilicus: 3 below: finger widths Umbilicus: 4 below: 0 finger widths PT-OP-K Range of Motion Start: 08/15/22 10:33 Freq: Status: Active Protocol: Document 08/21/22 08:53 LRN (Rec: 08/21/22 09:34 LRN [id number]) Hip Goniometric Range of Motion Hip Right Passive Testing Position Supine Internal Rotation 35 External Rotation 45 Left Passive Testing Position Supine Internal Rotation 30 External Rotation 50 PT-OP-M Strength Start: 08/15/22 10:33 Freq: Status: Active Protocol: Document 08/15/22 11:18 LRN (Rec: 08/15/22 12:14 LRN [id number]) Trunk Strength Trunk Manual Muscle Testing Core Stabilization Poor Core stabilization with movement and resistance given to LE's. Hip Strength Hip Manual Muscle Testing Right Flexion (L2) 4+ Good+ Extension (S1) 5 Normal Abduction 5 Normal Adduction 4 Good External Rotation 5 Normal Internal Rotation 4+ Good+ Left Flexion (L2) 4+ Good+ Extension (S1) 4+ Good+ Abduction 5 Normal Adduction 4 Good External Rotation 3+ Fair+ Internal Rotation 4+ Good+ PT-OP-Q Treatments Start: 08/15/22 10:33 Freq: Status: Active Protocol: Document 11/14/22 15:05 LRN (Rec: 11/14/22 16:23 LRN [id number]) Therapeutic Exercises Supine Exercises TA tightening Supine Exercise Name TA tightening for rotation Side bilateral Reps/Minutes 10 SH x 10 each. Sidelying Exercises TA tightening Sidelying Exercise Name TA tightening Side bilateral Reps/Minutes 10SH, 6' each Other Exercises 4 pt TA tightening Other Exercise Name 4 pt TA tightening Equipment Used Dowel stick Reps/Minutes 10 SH x 10 Comments Cuing and training to keep neutral spine. Self-Care/Home Management Treatment Education Other Education Discussed DR and possible reasons for differences in her relatives. Discussed and educated the pt in use of urge technique for training of preventing trigger to urinate with hands in hot water. Activities Self-Care/Home Management Activities Issued & reviewed HEP: 4 pt TA tightening, and trunk rot- hand/knee push. PT-OP-T Assessment and Plan Start: 08/15/22 10:33 Freq: Status: Active Protocol: Document 11/14/22 15:05 LRN (Rec: 11/14/22 16:23 LRN [id number]) Physical Therapy Assessment Rehab Potential Rehabilitation Potential Good Evaluation Complexity Number of Personal Factors/Comorbidities 1-2 Number of Body Systems Impaired 4 or More Clinical Presentation at Evaluation Evolving Impairments Impairments Activity Tolerance,Posture,ROM ,Soft Tissue Mobility,Strength Other Impairments Urinary leakage with stress. Not able to return to prior exercise activities. Goals Three Impairment Diastasis Rectus (DR) causing core instability. Impairment Umbilicus 4 above: 2 finger width (~2.5 cm) Umbilicus 3 above: 2 finger widths Umbilicus 2 above: 2.5 finger widths Umbilicus 1 above: 2.5 finger widths Umbilicus Umbilicus: 1 below: 3 finger widths Umbilicus: 2 below: 2.5 finger widths Umbilicus: 3 below: finger widths Umbilicus: 4 below: 0 finger widths Short Term Goal (STG) Pt education in DR protection using towel for support to DR with transfers and Pt will be educated in proper sitting/ standing posture and educated in proper body mechanics for ADLs and exercise. 09/23/22: Educated pt in DR protection using towel for support with transfers. 10/16/22: Pt educated in proper sitting/standing posture and educated in proper body mechanics for ADLs and functional activities ( exercise). 11/14/22: Reviewed DR protection using towel for support to DR with transfers STG Duration 09/05/22 (11/14/22: MET GOAL) Shelter Goal (LTG) Decrease DR, greater expected decrease to occur in > 6 months due to post hormonal changes. 11/14/22: Above Umbilicus: 4 above: 1.5 finger width (~2 cm), 3 above: 2.5 finger widths, 1 and 2 above: 3 finger widths. Below Umbilicus: 1 below: 2. 5 finger widths, 2 below: 2. 5 shallow finger widths, 3 below: 1.5 very shallow finger widths, 4 below: Closed LTG Duration 01/09/23 progressed below umbilicus, worse above umbilicus 11/14/22 Two Impairment Stress incontinence Impairment PF weakness with presence of substitute ms. PF weakness with urinary leakage on stress to PF (cough , sneeze, lifting son). Short Term Goal (STG) Education in proper methods for transfer with coordination of breathing with functional activities. 09/23/22: Educated in proper methods for transfer. 10/16/22: Educated in transfers w/coordination of breathing and with functional activities (sup<>sit<>stand). STG Duration 08/29/22 (10/16/22: MET GOAL) Process Inspector Goal (LTG) Strengthen the PF with pt able to cough, sneeze, lift son without urinary leakage. 11/14/22: Pt able to cough, sneeze and lift son without urinary leakage. LTG Duration 11/14/22 (11/14/22: MET GOAL) One Impairment Pt lacks self care HEP. Short Term Goal (STG) Pt will be independent in appropriate self care & hip stretches. 09/23/22: Pt shows good knowledge of hip IR/ER stretches. STG Duration 10/06/22 (08/21/22: MET GOAL) Shelter Goal (LTG) Pt will be independent in appropriate PF (to decrease urinary leakage) & core strengthening ex's to improve posture. 11/14/22: HEP: TA tightening in sidelie and 4 pt, and hands/ knees push for rotation. LTG Duration 01/09/23 progressed 11/14/22 Assessment Summary Assessment Pt is a 32 year old female who returns after a month break from therapy. She is one year post on 10/22/22. Initially she had stress urinary incontinence and a notable diastasis rectus that limited her core and pelvic stability. She no longer appears to have urinary stress incontinence but has urgency with a trigger of putting her hands in hot water, and a DR that has worsened above her umbilicus and lessened below her umbilicus. The pt is ready to progress with PF and core strengthening to improve her posture and core stabiltiy and to improve the stability of her PF and to retrain her bladder and reduce her urgency with a trigger of hot water. The pt will benefit from continued skilled PT to progress her on a self care program to reduce her DR and improve her core/pelvic stability, and decrease her urgency with hands in hot water. Physical Therapy Plan Frequency and Duration Frequency of Treatment 1x/Week Plan of Care Start Date 11/14/22 Plan of Care End Date 01/09/23 Therapeutic Interventions Therapeutic Interventions Home Exercise Program,Joint Mobilizations,Manual Therapy, Neuromuscular Re-education, Self-Care/Home Management,Soft Tissue Mobilization,Taping, Therapeutic Exercises Modalities Biofeedback,Hot Packs Next Visit Focus/Plan Next Note Type Treatment Note Next Visit Plan Review Kegel without use of substitute muscles, Education in vulvar/genital care, K-taping for DR, STM of abdomen (and urachus), bladder . Assess sacral positioning for sacral balancing, improve abdominal soft tissue (bladder ) mobility. PF/core (TA strengthening)/hip strengthening, improve hip mobility (ER>IR). POC: Decrease DR, decrease urgency with hands in hot water, and teach progression towards bouncing on TBall.
--- NOTE | 2022-11-17 17:39 | PT.OTN ---
Current Diagnoses Flatback syndrome, site unspecified (11/17/22) Postural lordosis, lumbar region (11/17/22) Separation of muscle (nontraumatic), unspecified site (11/17/22) Muscle weakness (generalized) (11/17/22) Unspecified urinary incontinence (11/17/22) Physical Therapy Treatment Note PT-OP-A Visit Information Start: 08/15/22 10:33 Freq: Status: Active Protocol: Document 11/17/22 08:01 LRN (Rec: 11/17/22 08:48 LRN [id number]) Out-Patient Physical Therapy Visit Information Visit Information Visit Type Treatment Note Visit Note 05/25 Visit Start Time 08:01 Visit Stop Time 08:41 Total Visit Minutes 41 Visit Number 09/22 Evaluation Information Evaluation Date 08/15/22 Precautions Precautions None PT-OP-B Current Condition Start: 08/15/22 10:33 Freq: Status: Active Protocol: Document 08/15/22 11:18 LRN (Rec: 08/15/22 12:14 LRN [id number]) Current Condition History of Current Condition Onset Date 10/22/21 Current Complaints Urinary leakage with cough, sneeze, squat, not exercising History of Current Condition Pt reports since the of her son while in standing if she coughs, sneezes, or squats , she has urinary leakage and can feel her pelvic floor drop . She reports a separation of abdominal muscles. One primarily complaint is that she hasn't done a work out/ exercise since the of her son. Her hips have hurt since sometimes with prolonged positioning. Prior to childbirth she states she exercised throughout and 2 days before did: wgt training 3-4x/week with weights and cardio (jumping jacks, 1x/week running, and stationary bike). She reports having a vaginal with tearing (2nd or 3rd degree). She states still is still . Prior Treatments and Tests None Future Testing and Treatments Planned None Developmental History Developmental History of son 10/22/2021. Treatment Goals Patient/Caregiver Goals Pt goals: Not leak with cough , sneeze, squat/stress. Strengthen pelvic floor. HEP, Education proper body mechanics/breathing. Personal Factors Other Personal Factors That May Effect Spouse is in , no Therapy/Recovery family in area. PT-OP-C Subjective Start: 08/15/22 10:33 Freq: Status: Active Protocol: Document 11/17/22 08:01 LRN (Rec: 11/17/22 08:48 LRN [id number]) OP-PT Subjective Patient Comments Patient Comments Doing more of ex's. PT-OP-I Pelvic Floor Start: 08/15/22 10:33 Freq: Status: Active Protocol: Document 10/16/22 15:01 LRN (Rec: 10/16/22 16:08 LRN [id number]) Pelvic Floor Assessment SEMG (uV) Baseline 4.0 Quick Contraction 12 10 Second Contraction 11.0 Recruitment Pattern Good Relaxation Fair Holding Fair Stability of Hold Poor/Slow SEMG Stability of Rest Fair Comments Pelvic Floor Comments Quick Flicks (10 reps noted above): No isolation of PF from abdominals. Long Holds (10 reps noted above): Pt tried to isolate PF from abdominals. PT-OP-J Posture/Palpation/Skin Start: 08/15/22 10:33 Freq: Status: Active Protocol: Document 08/15/22 11:18 LRN (Rec: 08/15/22 12:14 LRN [id number]) Posture Evaluation Position Standing Head/C-Spine Posture Neutral Position T-Spine Posture Flattened L-Spine Posture Increased Lordosis Shoulder Posture (R) Elevated Pelvis Posture (R) Iliac Crest Superior,(R) PSIS Posterior Weight Distribution Balanced Hip Posture (L) Externally Rotated,(R) Externally Rotated Knee Posture (L) Genu Varus,(R) Genu Varus Comments Posture Comments R scapula is upwardly rotated. Palpation Assessment Location Abdomen Palpation Location Diastasis Rectus Palpation Details Umbilicus 4 above: 2 finger width (~2.5 cm) Umbilicus 3 above: 2 finger widths Umbilicus 2 above: 2.5 finger widths Umbilicus 1 above: 2.5 finger widths Umbilicus Umbilicus: 1 below: 3 finger widths Umbilicus: 2 below: 2.5 finger widths Umbilicus: 3 below: finger widths Umbilicus: 4 below: 0 finger widths PT-OP-K Range of Motion Start: 08/15/22 10:33 Freq: Status: Active Protocol: Document 08/21/22 08:53 LRN (Rec: 08/21/22 09:34 LRN [id number]) Hip Goniometric Range of Motion Hip Right Passive Testing Position Supine Internal Rotation 35 External Rotation 45 Left Passive Testing Position Supine Internal Rotation 30 External Rotation 50 PT-OP-M Strength Start: 08/15/22 10:33 Freq: Status: Active Protocol: Document 08/15/22 11:18 LRN (Rec: 08/15/22 12:14 LRN [id number]) Trunk Strength Trunk Manual Muscle Testing Core Stabilization Poor Core stabilization with movement and resistance given to LE's. Hip Strength Hip Manual Muscle Testing Right Flexion (L2) 4+ Good+ Extension (S1) 5 Normal Abduction 5 Normal Adduction 4 Good External Rotation 5 Normal Internal Rotation 4+ Good+ Left Flexion (L2) 4+ Good+ Extension (S1) 4+ Good+ Abduction 5 Normal Adduction 4 Good External Rotation 3+ Fair+ Internal Rotation 4+ Good+ PT-OP-Q Treatments Start: 08/15/22 10:33 Freq: Status: Active Protocol: Document 11/17/22 08:01 LRN (Rec: 11/17/22 08:48 LRN [id number]) Therapeutic Exercises Supine Exercises Trunk rot Supine Exercise Name Feet on wall, arm swings opp of knee swings. Side bilateral Reps/Minutes 10' Comments Extra time for training with manual assist given to coordinate mvmt/ Medardo Obliques Supine Exercise Name Hands/knees push Side bilateral Reps/Minutes 9' Sitting Exercises Trunk Rot strengthening Sitting Exercise Name Trunk Rot with Ribs tucking in . Side bilateral Equipment Used Lev 2 TB Reps/Minutes 4' Manual Therapy Treatment Soft Tissue Mobilization Obliques Body Location L>R oblique stretching Mobilization Type Myofascial Release Intensity/Depth Moderate to deep Body Position Supine Taping Abdomen to close DR Body Location Diastasis Rectus (DR) Treatment Focus Support and closure of DR Type of Tape Kinesio Tape Skin Inspection Good Comments I strip down middle, 5 - I strips horizontally across abdomen with center anchor. PT-OP-T Assessment and Plan Start: 08/15/22 10:33 Freq: Status: Active Protocol: Document 11/17/22 08:01 LRN (Rec: 11/17/22 08:48 LRN [id number]) Physical Therapy Assessment Goals Three Impairment Diastasis Rectus (DR) causing core instability. Impairment Umbilicus 4 above: 2 finger width (~2.5 cm) Umbilicus 3 above: 2 finger widths Umbilicus 2 above: 2.5 finger widths Umbilicus 1 above: 2.5 finger widths Umbilicus Umbilicus: 1 below: 3 finger widths Umbilicus: 2 below: 2.5 finger widths Umbilicus: 3 below: finger widths Umbilicus: 4 below: 0 finger widths Short Term Goal (STG) Pt education in DR protection using towel for support to DR with transfers and Pt will be educated in proper sitting/ standing posture and educated in proper body mechanics for ADLs and exercise. 09/23/22: Educated pt in DR protection using towel for support with transfers. 10/16/22: Pt educated in proper sitting/standing posture and educated in proper body mechanics for ADLs and functional activities ( exercise). 11/14/22: Reviewed DR protection using towel for support to DR with transfers STG Duration 09/05/22 (11/14/22: MET GOAL) Real Estate Loan Officer Goal (LTG) Decrease DR, greater expected decrease to occur in > 6 months due to post hormonal changes. 11/14/22: Above Umbilicus: 4 above: 1.5 finger width (~2 cm), 3 above: 2.5 finger widths, 1 and 2 above: 3 finger widths. Below Umbilicus: 1 below: 2. 5 finger widths, 2 below: 2. 5 shallow finger widths, 3 below: 1.5 very shallow finger widths, 4 below: Closed LTG Duration 01/09/23 progressed below umbilicus, worse above umbilicus 11/14/22 Two Impairment Stress incontinence Impairment PF weakness with presence of substitute ms. PF weakness with urinary leakage on stress to PF (cough , sneeze, lifting son). Short Term Goal (STG) Education in proper methods for transfer with coordination of breathing with functional activities. 09/23/22: Educated in proper methods for transfer. 10/16/22: Educated in transfers w/coordination of breathing and with functional activities (sup<>sit<>stand). STG Duration 08/29/22 (10/16/22: MET GOAL) Real Estate Loan Officer Goal (LTG) Strengthen the PF with pt able to cough, sneeze, lift son without urinary leakage. 11/14/22: Pt able to cough, sneeze and lift son without urinary leakage. LTG Duration 11/14/22 (11/14/22: MET GOAL) One Impairment Pt lacks self care HEP. Short Term Goal (STG) Pt will be independent in appropriate self care & hip stretches. 09/23/22: Pt shows good knowledge of hip IR/ER stretches. STG Duration 10/06/22 (08/21/22: MET GOAL) Real Estate Loan Officer Goal (LTG) Pt will be independent in appropriate PF (to decrease urinary leakage) & core strengthening ex's to improve posture. 11/14/22: HEP: TA tightening in sidelie and 4 pt, and hands/ knees push for rotation. LTG Duration 01/09/23 progressed 11/14/22 Assessment Summary Assessment Improved trunk mobilty (rot R or pelvic rot L) after STM during trunk rot. Trunk rot R shows less abiltiy to draw ribs in both in sitting and supine, and she looses positioning of ribs over hips with R Trunk rot. Physical Therapy Plan Frequency and Duration Frequency of Treatment 1x/Week Plan of Care Start Date 11/14/22 Plan of Care End Date 01/09/23 Next Visit Focus/Plan Next Note Type Treatment Note Next Visit Plan Review Kegel without use of substitute muscles, Education in vulvar/genital care, Assess response to K-taping for DR, STM of abdomen. Assess sacral positioning for sacral balancing. STM to (urachus), bladder. Improve abdominal soft tissue (bladder) mobility. PF/core (TA strengthening)/hip strengthening, improve hip mobility (ER>IR). POC: Decrease DR, decrease urgency with hands in hot water, and teach progression towards bouncing on TBall.
--- NOTE | 2022-12-08 16:27 | PT.OTN ---
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, lumbar region (12/08/22) Separation of muscle (nontraumatic), unspecified site (12/08/22) Muscle weakness (generalized) (12/08/22) Unspecified urinary incontinence (12/08/22) Physical Therapy Treatment Note PT-OP-A Visit Information Start: 08/15/22 10:33 Freq: Status: Active Protocol: Document 12/08/22 15:04 LRN (Rec: 12/08/22 16:27 LRN [id number]) Out-Patient Physical Therapy Visit Information Visit Information Visit Type Treatment Note Visit Note 06/22 Visit Start Time 15:04 Visit Stop Time 15:50 Total Visit Minutes 46 Visit Number 10/22 Evaluation Information Evaluation Date 08/15/22 Precautions Precautions None PT-OP-B Current Condition Start: 08/15/22 10:33 Freq: Status: Active Protocol: Document 08/15/22 11:18 LRN (Rec: 08/15/22 12:14 LRN [id number]) Current Condition History of Current Condition Onset Date 10/22/21 Current Complaints Urinary leakage with cough, sneeze, squat, not exercising History of Current Condition Pt reports since the of her son while in standing if she coughs, sneezes, or squats , she has urinary leakage and can feel her pelvic floor drop . She reports a separation of abdominal muscles. One primarily complaint is that she hasn't done a work out/ exercise since the of her son. Her hips have hurt since sometimes with prolonged positioning. Prior to childbirth she states she exercised throughout and 2 days before did: wgt training 3-4x/week with weights and cardio (jumping jacks, 1x/week running, and stationary bike). She reports having a vaginal with tearing (2nd or 3rd degree). She states still is still . Prior Treatments and Tests None Future Testing and Treatments Planned None Developmental History Developmental History of son 10/22/2021. Treatment Goals Patient/Caregiver Goals Pt goals: Not leak with cough , sneeze, squat/stress. Strengthen pelvic floor. HEP, Education proper body mechanics/breathing. Personal Factors Other Personal Factors That May Effect Spouse is in , no Therapy/Recovery family in area. PT-OP-C Subjective Start: 08/15/22 10:33 Freq: Status: Active Protocol: Document 12/08/22 15:04 LRN (Rec: 12/08/22 16:27 LRN [id number]) OP-PT Subjective Patient Comments Patient Comments States leaving in 2 days. Drank water wrong and did a lot of coughing and had a small amount of leakage,not since. PT-OP-I Pelvic Floor Start: 08/15/22 10:33 Freq: Status: Active Protocol: Document 10/16/22 15:01 LRN (Rec: 10/16/22 16:08 LRN [id number]) Pelvic Floor Assessment SEMG (uV) Baseline 4.0 Quick Contraction 12 10 Second Contraction 11.0 Recruitment Pattern Good Relaxation Fair Holding Fair Stability of Hold Poor/Slow SEMG Stability of Rest Fair Comments Pelvic Floor Comments Quick Flicks (10 reps noted above): No isolation of PF from abdominals. Long Holds (10 reps noted above): Pt tried to isolate PF from abdominals. PT-OP-J Posture/Palpation/Skin Start: 08/15/22 10:33 Freq: Status: Active Protocol: Document 08/15/22 11:18 LRN (Rec: 08/15/22 12:14 LRN [id number]) Posture Evaluation Position Standing Head/C-Spine Posture Neutral Position T-Spine Posture Flattened L-Spine Posture Increased Lordosis Shoulder Posture (R) Elevated Pelvis Posture (R) Iliac Crest Superior,(R) PSIS Posterior Weight Distribution Balanced Hip Posture (L) Externally Rotated,(R) Externally Rotated Knee Posture (L) Genu Varus,(R) Genu Varus Comments Posture Comments R scapula is upwardly rotated. Palpation Assessment Location Abdomen Palpation Location Diastasis Rectus Palpation Details Umbilicus 4 above: 2 finger width (~2.5 cm) Umbilicus 3 above: 2 finger widths Umbilicus 2 above: 2.5 finger widths Umbilicus 1 above: 2.5 finger widths Umbilicus Umbilicus: 1 below: 3 finger widths Umbilicus: 2 below: 2.5 finger widths Umbilicus: 3 below: finger widths Umbilicus: 4 below: 0 finger widths PT-OP-K Range of Motion Start: 08/15/22 10:33 Freq: Status: Active Protocol: Document 08/21/22 08:53 LRN (Rec: 08/21/22 09:34 LRN [id number]) Hip Goniometric Range of Motion Hip Right Passive Testing Position Supine Internal Rotation 35 External Rotation 45 Left Passive Testing Position Supine Internal Rotation 30 External Rotation 50 PT-OP-M Strength Start: 08/15/22 10:33 Freq: Status: Active Protocol: Document 08/15/22 11:18 LRN (Rec: 08/15/22 12:14 LRN [id number]) Trunk Strength Trunk Manual Muscle Testing Core Stabilization Poor Core stabilization with movement and resistance given to LE's. Hip Strength Hip Manual Muscle Testing Right Flexion (L2) 4+ Good+ Extension (S1) 5 Normal Abduction 5 Normal Adduction 4 Good External Rotation 5 Normal Internal Rotation 4+ Good+ Left Flexion (L2) 4+ Good+ Extension (S1) 4+ Good+ Abduction 5 Normal Adduction 4 Good External Rotation 3+ Fair+ Internal Rotation 4+ Good+ PT-OP-Q Treatments Start: 08/15/22 10:33 Freq: Status: Active Protocol: Document 12/08/22 15:04 LRN (Rec: 12/08/22 16:27 LRN [id number]) Therapeutic Exercises Supine Exercises PF isolated Supine Exercise Name Reviewed Kegel without use of substitute muscles Reps/Minutes 1' Comments Pt able to perform TA tightening Supine Exercise Name TA tightening w/head lifts Reps/Minutes 5' Comments DR assessment. Standing Exercises Trunk rotation Standing Exercise Name TA/Trunk rot Side bilateral Equipment Used Lev 2 TB Reps/Minutes 15x2 L, 15x R Comments Cuing for coordinated breath, phys cuing for posture and drawing in of TA. PF/stairs Standing Exercise Name PF >< w/stair ambulation Reps/Minutes 3' Comments Cuing to tighten PF and breathe PF/walking Standing Exercise Name PF >< with walking in isolation of abdominal tightening Reps/Minutes 2' Comments Cuing to tighten PF/relax abdominal ms/breathe Self-Care/Home Management Treatment Education Patient Education Home Exercise Program Other Education Educated pt in self application of K-tape for DR and discussed putting on and leaving for 5 days max and to remove if signs of allergic reaction (redness, itching, discomfort). Activities Self-Care/Home Management Activities Issued & reviewed HEP: sitting /stand oblique strengthening. PT-OP-T Assessment and Plan Start: 08/15/22 10:33 Freq: Status: Active Protocol: Document 12/08/22 15:04 LRN (Rec: 12/08/22 16:27 LRN [id number]) Physical Therapy Assessment Goals Three Impairment Diastasis Rectus (DR) causing core instability. Impairment Umbilicus 4 above: 2 finger width (~2.5 cm) Umbilicus 3 above: 2 finger widths Umbilicus 2 above: 2.5 finger widths Umbilicus 1 above: 2.5 finger widths Umbilicus Umbilicus: 1 below: 3 finger widths Umbilicus: 2 below: 2.5 finger widths Umbilicus: 3 below: finger widths Umbilicus: 4 below: 0 finger widths Short Term Goal (STG) Pt education in DR protection using towel for support to DR with transfers and Pt will be educated in proper sitting/ standing posture and educated in proper body mechanics for ADLs and exercise. 09/23/22: Educated pt in DR protection using towel for support with transfers. 10/16/22: Pt educated in proper sitting/standing posture and educated in proper body mechanics for ADLs and functional activities ( exercise). 11/14/22: Reviewed DR protection using towel for support to DR with transfers STG Duration 09/05/22 (11/14/22: MET GOAL) Instructional Materials Director Goal (LTG) Decrease DR, greater expected decrease to occur in > 6 months due to post hormonal changes. 11/14/22: Above Umbilicus: 4 above: 1.5 finger width (~2 cm), 3 above: 2.5 finger widths, 1 and 2 above: 3 finger widths. Below Umbilicus: 1 below: 2. 5 finger widths, 2 below: 2. 5 shallow finger widths, 3 below: 1.5 very shallow finger widths, 4 below: Closed. 12/08/22: Above Umbilicus: 4 above: Shallow, 1.5 finger width (~2 cm), 3 above: 2.5 finger widths, 2 above: 2.5 finger widths. and 1 above: 3 finger widths. Below Umbilicus: 1 below: 2. 5 finger widths, 2 below: shallow 1.5 finger widths, 3 and 4 below: Closed. LTG Duration 01/09/23 (12/08/22: MET GOAL, diastasis present but improved) Two Impairment Stress incontinence Impairment PF weakness with presence of substitute ms. PF weakness with urinary leakage on stress to PF (cough , sneeze, lifting son). Short Term Goal (STG) Education in proper methods for transfer with coordination of breathing with functional activities. 09/23/22: Educated in proper methods for transfer. 10/16/22: Educated in transfers w/coordination of breathing and with functional activities (sup<>sit<>stand). STG Duration 08/29/22 (10/16/22: MET GOAL) Instructional Materials Director Goal (LTG) Strengthen the PF with pt able to cough, sneeze, lift son without urinary leakage. 11/14/22: Pt able to cough, sneeze and lift son without urinary leakage. LTG Duration 11/14/22 (11/14/22: MET GOAL) One Impairment Pt lacks self care HEP. Short Term Goal (STG) Pt will be independent in appropriate self care & hip stretches. 09/23/22: Pt shows good knowledge of hip IR/ER stretches. STG Duration 10/06/22 (08/21/22: MET GOAL) Intermediate Goal (LTG) Pt will be independent in appropriate PF (to decrease urinary leakage) & core strengthening ex's to improve posture. 11/14/22: HEP: TA tightening in sidelie and 4 pt, and hands/ knees push for rotation. 12/08/22: HEP: sitting/stand oblique strengthening with I/S to start with proper standing posture. LTG Duration 01/09/23 (12/08/22: MET GOAL) Assessment Summary Assessment Pt demonstrates good understanding of the ability to perform a PF contraction in isolation of substitute muscles, and was able to perform a PF contraction while walking and ambulating 4 steps. Pt had no questions regarding vulvar/genital care and appeared to have a good understanding of self applicatioin of K-tape if she wants to do after moving to [facility]. The pt had been unable to get on PT schedule the last 2 weeks; therefore the pt had not been able to progress strengtheing into T-ball bouncing. The pt also shows Diastasis Rectus still present to a fairly large degree (3 finger widths around umbilicus ); therefore i would recommend continuation of PT to promote closure once she is 6 months s/p and to progress PF strengthening. The pt has overall made good progress with physical therapy and is being discharged from therapy due to moving out of the country for spouse's job. Pt to continue with her independent HEP. Physical Therapy Plan Discharge Physical Therapy Discharge Reasons Goals Met Discharge Comments Pt met initial goals, but could benefit from further PT to improve core strength to help close DR once she is s/p and for PF strengthening to improve PF stability of strength with perpendicular forces (light bouncing). Thank you for your referral.
== END 2022-12-10 09:23 | disposition home or self-care (01) ==
LOC: PHYS 15:00
PROVIDERS: Family Provider Nurse Practitioner Family; PCP Nurse Practitioner Family; Referring Provider Nurse Practitioner Family; Visit Provider Nurse Practitioner Family
DX: R32 Unspecified urinary incontinence (principal); M40.30 Flatback syndrome, site unspecified; M40.46 Postural lordosis, lumbar region; M62.81 Muscle weakness (generalized); M62.00 Separation of muscle (nontraumatic), unspecified site
CPT/HCPCS: 97110; 97140; 97161; 97535